=== PATIENT | male | born 1955 | race Caucasian/White ===

== ENCOUNTER 2019-02-16 14:43 | Emergency (ER) | payer BC ==
[2019-02-16 15:00] VITALS: BP 133/89
--- NOTE | 2019-02-16 16:12 | UC ---
General HPI - HPI Summary HPI Summary: pt c/o pain to the back of his R heel x 2 weeks. no hx injury. walks all day. - History of Current Complaint Chief Complaint: UCLowerExtremity Stated Complaint: RIGHT FOOT CONCERN Time Seen by Provider: 02/16/19 16:03 Hx Obtained From: Patient Onset/Duration: Gradual Onset Timing: Constant Pain Intensity: 5 Associated Signs & Symptoms: Negative: Edema, Fever - Allergy/Home Medications Allergies/Adverse Reactions: Allergies Allergy/AdvReac Type Severity Reaction Status Date / Time aspirin Allergy Hives Verified 02/16/19 14:59 Penicillins Allergy Hives Verified 02/16/19 14:59 PMH/Surg Hx/FS Hx/Imm Hx - Additional Past Medical History Additional PMH: neuropathy toes x years [place] - Surgical History Surgical History: Yes Surgery Procedure, Year, and Place: TONSILLECTOMY - Family History Known Family History: Positive: Non-Contributory - Social History Occupation: Employed Full-time Alcohol Use: None Substance Use Type: None Smoking Status (MU): Never Smoked Tobacco - Immunization History Most Recent Tetanus Shot: 1988 Review of Systems All Other Systems Reviewed And Are Negative: No Constitutional: Negative: Fever Skin: Negative: Rash Musculoskeletal: Negative: Edema Physical Exam Triage Information Reviewed: Yes Appearance: Well-Appearing Vital Signs: Initial Vital Signs Temp 97.4 F 02/16/19 14:56 Pulse 59 02/16/19 14:56 Resp 17 02/16/19 14:56 BP 133/89 02/16/19 14:56 Pulse Ox 96 02/16/19 14:56 Vital Signs Reviewed: Yes Musculoskeletal: Positive: Other: - RLE: knee, achilles and ankle without deformity or tenderness. foot without gross deformity, swelling or discoloration. Point tender over back of heel only. rest of foot non tender with gross s/v/m per his baseline. Able to walk and plantar/dorsiflex ankle without difficulty/pain. Neurological: Positive: Alert Psychological: Positive: Age Appropriate Behavior Skin Exam: Normal Diagnostics - Radiology No standard instances Radiology Interpretation Completed By: Radiologist - IMPRESSION: HEEL SPURS. NO ACUTE OSSEOUS INJURY. IF SYMPTOMS PERSIST, RECOMMEND REPEAT IMAGING. Course/Dx - Differential Dx - Multi-Symptom Differential Diagnoses: Other - no concern for infection of fx. possible bursitis. doubt tendinitis. spur discomfort possible. will tx with nsaid, heel cushion. - Diagnoses Provider Diagnosis: Heel pain Discharge - Sign-Out/Discharge Documenting (check all that apply): Patient Departure All imaging exams completed and their final reports reviewed: Yes - Discharge Plan Condition: Stable Disposition: HOME Prescriptions: Naproxen [Naprosyn 500 mg tab] 500 mg PO BID 5 Days #10 tablet Patient Education Materials: Heel Spur (ED) Referrals: Rebecca Brown MD [Primary Care Provider] - If Needed Reece Rudolph MD [Medical Doctor] - 7 Days Additional Instructions: OBTAIN A HEEL CUSHION FOR YOUR SHOE - Billing Disposition and Condition Condition: STABLE Disposition: Home
== END 2019-02-16 16:51 | disposition home or self-care (01) ==
LOC: UCCORT 14:43
DX: M79.671 Pain in right foot (principal)
CPT/HCPCS: 99202; G0463